=== PATIENT | female | born 1995 | race Two or more races ===

== ENCOUNTER → 2025-06-03 | Outpatient (CLI) | payer BC, SELFPAY ==
[2025-06-03 16:57] LABS: HCG,Qualitative Serum Negative
[2025-06-03 17:04] LABS: Beta HCG,Quantitative < 1 mIU/mL (<5.0)
[2025-06-03 17:22] LABS: Syphilis Nonreactive (Nonreactive)
[2025-06-03 17:59] LABS: Hepatitis A Antibody IgM Non Reactive (Non React); Hepatitis B Core Antibody IgM Non Reactive (Non React); Hepatitis B Surface Antigen Non Reactive (Non React); Hepatitis C Antibody Non Reactive (Non React)
[2025-06-03 20:56] LABS: HIV (1&2) Antibody Rapid Non-Reactive
[2025-06-04 09:46] LABS: Chlamydia trachomatis PCR Negative (Not Detect); Neisseria Gonorrhoeae DNA PCR Negative (Not Detect); Trichomonas Negative (Negative)
== END | disposition home or self-care (01) ==
PROVIDERS: PCP Nurse Practitioner Family; Referring Provider Nurse Practitioner Family; Visit Provider Nurse Practitioner Family
DX: N92.1 Excessive and frequent menstruation with irregular cycle (principal); Z30.09 Encounter for other general counseling and advice on contraception; Z72.51 High risk heterosexual behavior
CPT/HCPCS: 36415; 80074; 84702; 84703; 86703; 86780; 87491; 87591; 87661